=== PATIENT | male | born 1990 | race Caucasian/White ===

== ENCOUNTER → 2016-07-11 | Day surgery (SDC) | payer OTHER ==
[~2016-07-11] MED LIST: LIDOCAINE 2% VISCOUS(20 MG/1 ML) - 15 ML UD CUP PO ONE; LIDOCAINE HCL/PF 2% (20 MG/ML) - 5 ML SYRINGE ONE; Lactated Ringers 1,000 ML PRIMARY IV ONE; MIDAZOLAM 5 MG/1 ML ONE; fentaNYL Inj 100 MCG/2 ML VIAL ONE
[2016-07-11 09:41] VITALS: RESP 18
[2016-07-11] MEDS: LIDOCAINE W/ SODIUM BICARB 0.5 ML SYR ONE (09:54)
--- NOTE | 2016-07-11 10:09 | GEN.OPNOTE ---
EGD Operative Note Surgery Date: 07/11/16 Preoperative Diagnosis: Dysphagia Postoperative Diagnosis: Dysphagia Procedure: Esophagogastroduodenoscopy Surgeon: Fede Toth MD Anesthesia Provider: Sebastian Umaña CRNA Anesthesia Type: MAC Indications: Patient feels food stick of the distal esophagus Findings: Esophagus: Olymp[employer] video EGD scope inserted into posterior pharynx. Guided esophagus under direct visualization. The esophagus appeared to be normal. Random biopsies were taken the distal esophagus to rule out eosinophilic esophagitis GE Junction : GE junction proximal be 40 cm from incisors Fundus : Scope retroflexed on itself revealing normal fundus Body : Body the stomach within normal limits Prepyloric : Prepyloric area free from disease Small Intestine : First, second, third portion duodenum within normal limits A lubricated flexible upper endoscope was inserted and passed through the esophagus and stomach into the duodenum. Additional Details: I then placed the balloon dilator across the GE junction and dilated it to 20 mm
[2016-07-11 11:07] VITALS: TEMP 97.5
== END | disposition home or self-care (01) ==
LOC: SDSC 09:21
PROVIDERS: ATTEND Surgery
DX: R13.10 Dysphagia, unspecified (principal)
CPT/HCPCS: 43235; J2704; J3010; J2001; J2250; J7120